=== PATIENT | female | born 1950 | race Caucasian/White ===

== ENCOUNTER 2017-08-15 12:16 | Emergency (ER) | payer MEDICARE, BC ==
[~2017-08-15] VITALS: Ht 162.6 cm; Wt 73.9 kg
[2017-08-15] MEDS ORDERED: OMEP40CA37 PO (12:28)
[2017-08-15] MEDS ORDERED: P-EP-92 PO (12:28)
--- NOTE | 2017-08-15 12:50 | NUR ---
Pt was given verbal ACI by Dr. Nuñez but pt left before written ACI and Rx (Benadryl) could be given.
== END 2017-08-15 13:00 | disposition home or self-care (01) ==
LOC: ER 12:23
DX: L25.9 Unspecified contact dermatitis, unspecified cause (principal); K21.9 Gastro-esophageal reflux disease without esophagitis
CPT/HCPCS: 99282; A4663

== ENCOUNTER 2018-02-28 02:30 | Inpatient (IN) | payer MEDICARE, BC ==
[~2018-02-28] VITALS: Ht 162.6 cm; Wt 72.6 kg
[~2018-02-28 02:30] MED LIST: OMEP40CA37 PO; P-EP-92 PO
--- NOTE | 2018-02-28 02:50 | NUR ---
Patient ambulated to ER, c/o pain on back/left hip, 10/10, cramping/spasming pain. Patient reports was doing nothing, onset of pain was sudden.
--- NOTE | 2018-02-28 03:00 | NUR ---
Dr. Lazar at bedside for MSE.
[2018-02-28] MEDS ORDERED: HYDROMORPHONE 1 MG/1 ML DISP.SYRIN IV ONE (03:15)
[2018-02-28] MEDS ORDERED: IV NORMAL SALINE 1000 ML BAG IV ONE ×2 (03:15→04:45)
[2018-02-28] MEDS ORDERED: ONDANSETRON 4 MG/2 ML VIAL IV ONE (03:15)
[2018-02-28] MEDS ORDERED: ONDANSETRON 4 MG/2 ML VIAL ONE (03:25)
[2018-02-28] MEDS ORDERED: MORPHINE SULFATE 4 MG/1 ML DISP.SYRIN ONE ×2 (03:29→04:05)
[2018-02-28] MEDS ORDERED: MORPHINE SULFATE 4 MG/1 ML DISP.SYRIN IV ONE ×3 (03:30→05:45)
[2018-02-28 03:33] LABS: BASOPHILS % (AUTO) 0.4 % (0.0-2.0); EOSINOPHILS # (AUTO) 0.1 K/uL (0.0-0.7); EOSINOPHILS % (AUTO) 0.7 % (0.0-7.0); HEMATOCRIT 38.4 % (31.2-41.9); HEMOGLOBIN 12.9 g/dL (10.9-14.3); LYMPHOCYTES # (AUTO) 1.8 K/uL (20.0-40.0); LYMPHOCYTES % (AUTO) 15.4 % (20.5-51.5); MEAN CORPUSCULAR HGB CONC 34 g/dL (32.3-35.6); MEAN CORPUSCULAR VOLUME 89.2 fL (75.5-95.3); MONOCYTES # (AUTO) 0.5 K/uL (2.0-10.0); MONOCYTES % (AUTO) 4.2 % (0.0-11.0); NEUTROPHILS # (AUTO) 9.1 K/uL (1.8-8.9); NEUTROPHILS % (AUTO) 79.3 % (38.5-71.5); PLATELET COUNT (AUTO) 277 K/uL (179-408); RED BLOOD CELL COUNT(AUTO) 4.31 MIL/uL (3.63-4.92); WHITE BLOOD COUNT (AUTO) 11.4 K/uL (3.8-11.8)
[2018-02-28 03:38] LABS: CREATININE 1.3 mg/dL (0.6-1.3)
[2018-02-28 03:44] LABS: BILIRUBIN,DIRECT 0.1 mg/dL (0.0-0.2); BILIRUBIN,TOTAL 0.2 mg/dL (0.2-1.0); TOTAL PROTEIN, SERUM 8.1 g/dL (6.4-8.2)
--- NOTE | 2018-02-28 03:55 | NUR ---
Patient states back still very painful, crying, rubbing site. Patient had an episode of emesis. MD notified.
[2018-02-28] MEDS ORDERED: METOCLOPRAMIDE HCL 10 MG/2 ML VIAL IV ONE (04:00)
[2018-02-28] MEDS ORDERED: METOCLOPRAMIDE HCL 10 MG/2 ML VIAL ONE (04:04)
--- NOTE | 2018-02-28 04:05 | NUR ---
Patient out of ER for CT.
[2018-02-28] MEDS ORDERED: MORPHINE SULFATE 2 MG/1 ML DISP.SYRIN ONE (04:06)
--- NOTE | 2018-02-28 04:16 | NUR ---
Patient back to ER from CT.
--- NOTE | 2018-02-28 04:23 | NUR ---
Patient refused Reglan and Morphine, reports feeling a little better, wants to save it for later.
[2018-02-28] MEDS ORDERED: KETOROLAC TROMETHAMINE 30 MG INJ IVP ONE (05:15)
--- NOTE | 2018-02-28 05:35 | NUR ---
Patient provided urine sample. Urine sent to lab.
--- NOTE | 2018-02-28 05:43 | NUR ---
Called [facility] to request panel call.
[2018-02-28] MEDS ORDERED: ONDANSETRON IV *ER 4 MG/2 ML VIAL IV ONE (05:45)
[2018-02-28 05:50] LABS: *BILIRUBIN,URIN NEGATIVE (NEGATIVE); *BLOOD, URINE 2+ (NEGATIVE); *COLOR,URINE YELLOW (YELLOW); *KETONES,URINE 1+ (NEGATIVE); *PROTEIN,URINE 2+ (NEGATIVE); *UROBILINOGEN,URINE 0.2 E.U./dl (NORMAL); LEUKOCYTE ESTERASE ,URINE 1+ (NEGATIVE); NITRITE, URINE NEGATIVE (NEGATIVE); PH,URINE 7.5 (5.0-8.0); UGLUCOSE NEGATIVE (NEGATIVE)
--- NOTE | 2018-02-28 05:50 | NUR ---
Patient reports not nauseous anymore, pain a little better at 8/10. Doesn't want anymore medications.
[2018-02-28 05:53] LABS: *CLARITY,URINE HAZY (CLEAR)
[2018-02-28 05:56] LABS: BACTERIA,URINE FEW /HPF (NONE SEEN); RBC,URINE TNTC /HPF (0-3); SQUAMOUS EPITHELIAL CELL,UR FEW /HPF (NONE SEEN)
[2018-02-28 05:57] LABS: MUCUS,URINE FEW /LPF (0-FEW)
--- NOTE | 2018-02-28 06:53 | NUR ---
SBAR report passed to Fatoumata DUNCAN
--- NOTE | 2018-02-28 07:22 | NUR ---
PATEINT IS AWAKE AND ALERT. STATES HS SOME MILD PAIN BUT DOES NOT WANT PAIN MEDICINE AT THIS TIME. SHE IS AWARE OF PENDING ADMISSION. AWAITING CALL FROM DR SHEPPARD TO ADMIT.
--- NOTE | 2018-02-28 08:47 | NUR ---
REPORT GIVEN TO JEEVAN DUNCAN.
--- NOTE | 2018-02-28 08:55 | NUR ---
Received pt via wheelchair accompanied by one staff member. Pt is alert and oriented time 4, wishes to stay at the hospital for at least one day because she states she is at home alone, her son is to arrive back home tonight. Pt is under no apparent s/s of distress, discomfort, SOB, or pain at this moment. Pt is aware we will be straining her urine for possible kidney stone passing. Diet ordered passed, pt stated she is would like to eat, Dietary aware and will provide nutrition. VS stable at this time
[2018-02-28 09:00] VITALS: BP 124/68
[2018-02-28] MEDS ORDERED: ZOLPIDEM 5 MG TABLET PO PRN (10:15)
[2018-02-28] MEDS ORDERED: ONDANSETRON 4 MG/2 ML VIAL IV PRN (10:15)
[2018-02-28] MEDS: IV NS 1000 ML 1,000 ML IV PRN ×2 (11:33→23:28)
[2018-02-28 11:50] VITALS: BP 107/48
[2018-02-28] MEDS: CIPROFLOXACIN IV 200 MG in PREMIXED 1 EACH IV SCH ×2 (13:44→20:34)
[2018-02-28] MEDS ORDERED: MAGNESIUM HYDROXIDE 30 ML LIQUID UDC PO PRN (13:45)
[2018-02-28 15:29] VITALS: BP 109/56
[2018-02-28] MEDS: PANTOPRAZOLE SODIUM 40 MG VIAL IV SCH (15:57)
[2018-02-28] MEDS: ACETAMINOPHEN 325 MG TABLET PO PRN (16:48)
--- NOTE | 2018-02-28 16:49 | NUR ---
Pt has been noted to walk on her own several times around the unit, pt is steady on her feet. Tylenol given due to left side flank pain, pt will request for stronger pain medication if needed
--- NOTE | 2018-02-28 19:20 | NUR ---
Received patient, awake, alert and orient x 4. Able to verbalized needs/concerns. Tolerable pain on left side presented and claimed that she got her dose of Tylenol earlier. Instructed patient to inform nurse once pain increased. Continue care as planned.
[2018-02-28] MEDS: MORPHINE SULFATE 2 MG/1 ML DISP.SYRIN IV PRN ×2 (19:35→23:30)
--- NOTE | 2018-02-28 19:35 | NUR ---
Medicated for pain in scale of 10/10 on her left side. Will monitor.
--- NOTE | 2018-02-28 19:45 | NUR ---
end of shift notes: pt has been compliant with nursing care and medication, alert and oriented times 4, ambulatory, no O2 is use, IV hydration running at this time 125cc/hr. No apparent s/s of any immediate distress or SOB. Pt is experiencing some discomfort around the left flank area, night nurse aware and will follow up with pain medications if needed
[2018-02-28] MEDS: TAMSULOSIN HCL 0.4 MG CAP.SR.24H PO SCH (20:35)
[2018-02-28 20:40] VITALS: BP 116/57
[2018-03-01 04:00] VITALS: BP 144/68
--- NOTE | 2018-03-01 06:09 | NUR ---
SHIFT END REPORT: VS stable. Medicated twice with Morphine for left flank pain in scale of 8-10/10 with moderate relief. Adequate po fluid intake noted. IVF continuos as ordered. No s/s of adverse reaction noted from Cipro. Continue straining urine as ordered. All needs attended and met.
[2018-03-01 06:47] LABS: BASOPHILS % (AUTO) 0.4 % (0.0-2.0); EOSINOPHILS % (AUTO) 0.3 % (0.0-7.0); HEMOGLOBIN 11.1 g/dL (10.9-14.3); LYMPHOCYTES # (AUTO) 1.3 K/uL (20.0-40.0); LYMPHOCYTES % (AUTO) 11.2 % (20.5-51.5); MEAN CORPUSCULAR HEMOGLOBIN 30.1 uug (24.7-32.8); MEAN CORPUSCULAR HGB CONC 34 g/dL (32.3-35.6); MEAN CORPUSCULAR VOLUME 89.7 fL (75.5-95.3); MONOCYTES # (AUTO) 0.9 K/uL (2.0-10.0); MONOCYTES % (AUTO) 7.7 % (0.0-11.0); NEUTROPHILS # (AUTO) 9.1 K/uL (1.8-8.9); NEUTROPHILS % (AUTO) 80.4 % (38.5-71.5); RED BLOOD CELL COUNT(AUTO) 3.69 MIL/uL (3.63-4.92); WHITE BLOOD COUNT (AUTO) 11.3 K/uL (3.8-11.8)
[2018-03-01 06:50] LABS: BILIRUBIN,TOTAL 0.4 mg/dL (0.2-1.0); CREATININE 0.9 mg/dL (0.6-1.3); MAGNESIUM 1.9 mg/dL (1.8-2.4); TOTAL PROTEIN, SERUM 6.5 g/dL (6.4-8.2)
[2018-03-01 06:51] LABS: THYROID STIMULATING HORMONE 0.323 mIU/mL (0.358-3.740)
[2018-03-01 06:54] LABS: HEMATOCRIT 33.5 % (31.2-41.9); PLATELET COUNT (AUTO) 206 K/uL (179-408)
--- NOTE | 2018-03-01 07:20 | NUR ---
RECEIVED REPORT FROM C T TECH NURSE, PATIENT IN BED AWAKE, APPEARS TO BE RESTLESS. PATIENT REPORTS INTERMITTENT PAIN. CURRENTLY IN BED, BED IN LOW POSITION, SIDE RAILS UP X2.
[2018-03-01] MEDS: PANTOPRAZOLE SODIUM 40 MG VIAL IV SCH (08:08)
[2018-03-01] MEDS: IV NS 1000 ML 1,000 ML IV PRN (08:08)
[2018-03-01] MEDS: CIPROFLOXACIN IV 200 MG in PREMIXED 1 EACH IV SCH ×2 (08:14→20:13)
[2018-03-01] MEDS ORDERED: [UNRECOGNIZED DRUG - OTHER] PO SCH (09:00)
[2018-03-01] MEDS ORDERED: LORATADINE PO SCH (09:00)
[2018-03-01] MEDS: KETOROLAC TROMETHAMINE 15 MG INJ IM PRN ×2 (11:23→20:37)
[2018-03-01 11:27] VITALS: BP 114/57
--- NOTE | 2018-03-01 12:45 | NUR ---
CLINICAL PHARMACY NOTE:GENTAMICIN DOSING Request for Gentamicin dosing on 68 y/o female 5'4" 160lbs for UTI Temp 99.5 BUN 14 Scr 0.9 WBC 11.3 also on Cipro iv Start Gentamicin 80mg ivpb q12h estimated peak 5.8 trough 0.88 will order levels prior to 4th dose.Will continue to monitor
[2018-03-01] MEDS: GENTAMICIN SULFATE INJ 80 MG in IV DEXTROSE 5% 50 ML IV SCH (14:31)
[2018-03-01] MEDS: ACETAMINOPHEN 325 MG TABLET PO PRN (15:21)
[2018-03-01 15:55] VITALS: BP 140/60
--- NOTE | 2018-03-01 19:25 | NUR ---
RECEIVED PT AWAKE, ALERT AND ORIENTEDX4. PT SHOWS NO SIGNS OF DISTRESS. PT IV INTACT AND PATENT.CALL LIGHT WITHIN REACH. BED ALARM ON AND IN LOW POSITION. SIDE RAILS UPX2. SAFETY AND COMFORT PROVIDED. WILL CONTINUE TO MONITOR.
[2018-03-01 20:00] VITALS: BP 103/59
[2018-03-01] MEDS: TAMSULOSIN HCL 0.4 MG CAP.SR.24H PO SCH (20:13)
--- NOTE | 2018-03-01 22:00 | NUR ---
PT IV INFILTRATED. PUT ANOTHER IV ON RIGHT FOREARM 20G. WILL CONTINUE TO MONITOR.
[2018-03-02] MEDS: GENTAMICIN SULFATE INJ 80 MG in IV DEXTROSE 5% 50 ML IV SCH (01:34)
[2018-03-02 04:00] VITALS: BP 106/74
--- NOTE | 2018-03-02 05:45 | NUR ---
PT SLEPT THROUGHOUT THE SHIFT. PT SHOWS NO SIGNS OF DISTRESS. PRESCRIBED MEDICATION GIVEN. PT TOLERATED IT WELL. CALL LIGHT WITHIN REACH. BED ALARM ON AND IN LOW POSITION. SIDE RAILS UPX2. SAFETY AND COMFORT PROVIDED. WILL ENDORSE TO DAYSHIFT NURSE.
[2018-03-02] MEDS: KETOROLAC TROMETHAMINE 15 MG INJ IM PRN (06:28)
[2018-03-02 06:50] LABS: CREATININE 0.7 mg/dL (0.6-1.3); POTASSIUM 4.1 mmol/L (3.5-5.1)
[2018-03-02] MEDS ORDERED: PANTOPRAZOLE SODIUM 40 MG TABLET.DR PO SCH (07:00)
[2018-03-02 07:34] LABS: BASOPHILS # (AUTO) 0.1 K/uL (0.0-8.0); BASOPHILS % (AUTO) 0.8 % (0.0-2.0); EOSINOPHILS # (AUTO) 0.2 K/uL (0.0-0.7); EOSINOPHILS % (AUTO) 2.5 % (0.0-7.0); HEMATOCRIT 31.5 % (31.2-41.9); HEMOGLOBIN 10.6 g/dL (10.9-14.3); LYMPHOCYTES # (AUTO) 1.5 K/uL (20.0-40.0); MEAN CORPUSCULAR HEMOGLOBIN 30.2 uug (24.7-32.8); MEAN CORPUSCULAR HGB CONC 34 g/dL (32.3-35.6); MEAN CORPUSCULAR VOLUME 90.2 fL (75.5-95.3); MONOCYTES # (AUTO) 0.7 K/uL (2.0-10.0); MONOCYTES % (AUTO) 9.8 % (0.0-11.0); NEUTROPHILS # (AUTO) 4.5 K/uL (1.8-8.9); NEUTROPHILS % (AUTO) 64.9 % (38.5-71.5); PLATELET COUNT (AUTO) 184 K/uL (179-408)
--- NOTE | 2018-03-02 07:36 | NUR ---
PATIENT NOTED RESTING IN BED WITH EYES CLOSED, EASILY AROUSES, NO COMPLAINTS OF PAIN AT THIS TIME, NO SIGNS OF DISTRESS NOTED, CALL LIGHT IN REACH, BED LOCKED AND IN LOWEST POSITION, X [address]
[2018-03-02 07:43] LABS: WHITE BLOOD COUNT (AUTO) 6.9 K/uL (3.8-11.8)
[2018-03-02] MEDS: CIPROFLOXACIN IV 200 MG in PREMIXED 1 EACH IV SCH (09:02)
[2018-03-02] MEDS: IV NS 1000 ML 1,000 ML IV PRN (10:13)
[2018-03-02 11:40] VITALS: BP 120/67
[2018-03-02] MEDS ORDERED: SULF1TAB48 PO (15:16)
[2018-03-02] MEDS ORDERED: HYDR-3326 PO (15:16)
[2018-03-02 15:36] VITALS: BP 116/56
[2018-03-02] MEDS: MORPHINE SULFATE 2 MG/1 ML DISP.SYRIN IV PRN (16:27)
--- NOTE | 2018-03-02 17:35 | NUR ---
116/56, 90 pulse, 97% on room air, 98.0 oral temperature, patient discharged home at 1450 via wheelchair to private car, IV discontinued at this time, exit care provided, discharge instructions given, hard script provided, all belongings accounted for and in possession of patient, no complaints of pain or signs of distress on discharge
[2018-03-03 08:07] LABS: VIT D, 25-HYDROXY 30.5 ng/mL (30.0-100.0)
== END 2018-03-02 16:50 | disposition home or self-care (01) | DRG 694 ==
LOC: ER 02:34 → MED 08:21
PROVIDERS: ADMIT Internal Medicine; ATTEND Internal Medicine
DX: N13.2 Hydronephrosis with renal and ureteral calculous obstruction (principal); N17.0 Acute kidney failure with tubular necrosis; N39.0 Urinary tract infection, site not specified; D53.9 Nutritional anemia, unspecified; K21.9 Gastro-esophageal reflux disease without esophagitis; Z90.710 Acquired absence of both cervix and uterus; Z82.3 Family history of stroke; Z84.1 Family history of disorders of kidney and ureter; Z80.3 Family history of malignant neoplasm of breast; Z87.442 Personal history of urinary calculi; Z88.0 Allergy status to penicillin; E03.9 Hypothyroidism, unspecified; H26.9 Unspecified cataract; L25.9 Unspecified contact dermatitis, unspecified cause; M19.90 Unspecified osteoarthritis, unspecified site; Z79.899 Other long term (current) drug therapy; E05.90 Thyrotoxicosis, unspecified without thyrotoxic crisis or storm; E66.3 Overweight; K66.0 Peritoneal adhesions (postprocedural) (postinfection); Z87.440 Personal history of urinary (tract) infections
CPT/HCPCS: 36415; 71045; 74018; 82306; 82652; 83690; 83735; 83970; 84100; 84443; 84550; 85025; 87086; 93005; A4663; C9113; J1580; J1885; J2270; J2405; J2765; J7030; J7042; J7060